=== PATIENT | female | born 1950 | race Caucasian/White ===

== ENCOUNTER 2023-02-01 04:20 | Day surgery (SDC) | payer OTHER ==
[2023-01-28 12:29] VITALS: BMI 41.5
[2023-02-01 07:20] VITALS: TEMP 98
[2023-02-01 09:33] VITALS: BP 108/45; PULSE 67; RESP 15
== END 2023-02-01 09:42 | disposition home or self-care (01) ==
LOC: JASU-ENDO 04:20
PROVIDERS: ATTEND Internal Medicine Gastroenterology
PROC: 0DJD8ZZ Inspection of Lower Intestinal Tract, Via Natural or Artificial Opening Endoscopic (ICD-10-PCS; principal; 2023-02-01 08:00)
DX: Z12.11 Encounter for screening for malignant neoplasm of colon (principal); K57.30 Diverticulosis of large intestine without perforation or abscess without bleeding; K64.8 Other hemorrhoids